=== PATIENT | female | born 1975 | race African-American/Black ===

== ENCOUNTER 2016-09-24 09:24 | Emergency (ER) | payer MEDICARE, MEDICAID ==
[~2016-09-24] VITALS: Ht 149.9 cm; Wt 103.2 kg
[~2016-09-24 09:24] MED LIST: ALBUTEROL SULFAT3 M3 IH; ALBUTEROL0.83 MG/ML IH; ASPIRIN 81M81 MG/TA2 PO; ASPIRIN E.C. 8181 MG PO; CELEXA10 MG PO; CLEOCIN HC150 MG/CAP PO; COLACE 100100 MG/CAP PO; COUMADIN 6MG6 MG/TAB; COUMADIN 6MG6 MG/TAB PO; COUMADIN4 MG; COUMADIN4 MG PO; DILANTIN 100MG100 MG PO; DILANTIN O100 MG/4 M PO; FLONASE NASAL S16 GM NS; FLONASEALLERGY NS; IPRATROPIUM BROM3 M1 IH; KEPPRA1000 MG; KEPPRA1000 MG PO; LASIX 40MG TABL40 MG PO; LEVAQUIN 5500 MG/TA1 PO; LEVAQUIN 750MG750 M1 PO; LEVOXYL0.1 MG PO; LIPITOR20 MG PO; LOVENOX 4040 MG/0.4 SQ; MOTRIN 400400 MG/TAB PO; MUCINEX D1 TER PO; NORCO 325 MG-51 TAB PO; NORCO 325 MG-7.1 TAB PO; OMNICEF 300MG300 MG PO; RT ALBUTER2.5 MG/0.5 IH; SALINE 45 ML45 ML NS; SALINE NASAL SP45 ML NS; SEASONALE 30 MC1 TAB PO; SINGULAIR 110 MG/TAB PO; STOOL SOFTENER100 M2 PO; SYNTHROID0.075 MG/T PO; SYNTHROID0.1 MG/TAB PO; SYNTHROID0.175 MG PO; TYLENOL 325MG325 MG PO; ZITHROMAX 250M250 MG PO; ZITHROMAX Z PA250 MG PO; ZOFRAN ODT4 MG PO; ZONEGRAN 100MG100 MG PO; ZYRTEC 10MG10 MG PO
[2016-09-24 09:26] VITALS: TEMP 98.2
[2016-09-24 11:05] LABS: BASO # 0.1 (0.0-0.2); EOS # 0.1 (0.0-0.7); GRAN # 4.9 (1.4-6.5); HEMOGLOBIN 12.2 g/dl (12.5-16.0); LYMPH # 1.3 (1.2-3.4); LYMPH % 18.9 % (20.0-51.0); MEAN CELL VOLUME 91 fl (80.0-100.0); MEAN CORPUSCULAR HEMOGLOBIN 29 pg (27.0-31.0); MEAN CORPUSCULAR HGB CONC 32 g/dl (33.0-37.0); MEAN PLATELET VOLUME 10.2 fl (7.4-10.4); MONO # 0.6 (0.1-0.6); MONO % 8.8 % (1.7-9.3); PLATELET COUNT 316 K/mm3 (130-400); REDCELL DISTRIBUTION WIDTH-CV 16.3 % (11.5-14.5); WHITE BLOOD COUNT 7.1 K/mm3 (4.8-10.8)
[2016-09-24 11:07] LABS: INR 2.6 (0.8-3.0); PROTHROMBIN TIME 29.8 SECONDS (9.7-12.8)
[2016-09-24 11:08] LABS: CREATININE, serum 0.85 mg/dL (0.52-1.25); POTASSIUM 4.3 mmol/L (3.4-5.0)
[2016-09-24 11:10] LABS: PARTIAL THROMBOPLASTIN TIME 38.6 SECONDS (26.0-37.0)
[2016-09-24] MEDS ORDERED: SYNTHROID0.112 MG/T PO (11:21)
[2016-09-24] MEDS ORDERED: KEPPRA1000 MG PO (11:23)
[2016-09-24] MEDS ORDERED: COLACE 100100 MG/CAP PO (11:23)
[2016-09-24] MEDS ORDERED: SALINE MIST 4545 ML NS (11:24)
[2016-09-24] MEDS ORDERED: COUMADIN 6MG6 MG/TAB PO (11:25)
[2016-09-24] MEDS ORDERED: TYLENOL W/COD1 UDTAB PO (14:33)
[2016-09-24 14:42] VITALS: BP 120/93
[2016-09-24 15:25] VITALS: PULSE 96
== END 2016-09-24 15:26 | disposition home or self-care (01) ==
LOC: COL.ER 09:24
PROVIDERS: Emergency Medicine
DX: I77.89 Other specified disorders of arteries and arterioles (principal); Z86.718 Personal history of other venous thrombosis and embolism; Z79.01 Long term (current) use of anticoagulants; Z86.73 Personal history of transient ischemic attack (TIA), and cerebral infarction without residual deficits
CPT/HCPCS: J2765; J3010; J7040; Q9967

== ENCOUNTER 2016-10-06 21:45 | Emergency (ER) | payer MEDICARE, MEDICAID ==
[~2016-10-06] VITALS: Ht 149.9 cm; Wt 103.2 kg
[~2016-10-06 21:45] MED LIST changes: +SALINE MIST 4545 ML NS; +SYNTHROID0.112 MG/T PO; +TYLENOL W/COD1 UDTAB PO
[2016-10-06 21:47] VITALS: TEMP 98.4
[2016-10-06 22:46] LABS: HEMATOCRIT 38.2 % (37.0-47.0); HEMOGLOBIN 12.4 g/dl (12.5-16.0); MEAN CELL VOLUME 89 fl (80.0-100.0); MEAN CORPUSCULAR HEMOGLOBIN 29 pg (27.0-31.0); MEAN CORPUSCULAR HGB CONC 33 g/dl (33.0-37.0); MEAN PLATELET VOLUME 9.8 fl (7.4-10.4); PLATELET COUNT 301 K/mm3 (130-400); REDCELL DISTRIBUTION WIDTH-CV 16.3 % (11.5-14.5); WHITE BLOOD COUNT 7.7 K/mm3 (4.8-10.8)
[2016-10-06 22:52] LABS: ADD PATHOLOGY DIFF REVIEW NO
[2016-10-06 22:52] LABS: PROTHROMBIN TIME 40.9 SECONDS (9.7-12.8)
[2016-10-06 22:54] LABS: INR 3.5 (0.8-3.0)
[2016-10-06 22:59] LABS: CALCIUM 8.8 mg/dL (8.4-10.2); CREATININE, serum 0.84 mg/dL (0.52-1.25); POTASSIUM 3.6 mmol/L (3.4-5.0)
[2016-10-06 23:08] LABS: BAND 33 % (0-10); EOSINOPHIL 1 % (0-4); NEUTROPHILS 31 % (42.0-75.2); PLATELET ESTIMATE NORMAL (NORMAL); TOTAL CELLS COUNTED 100
[2016-10-06 23:21] VITALS: BP 131/68; PULSE 64
== END 2016-10-06 23:21 | disposition home or self-care (01) ==
LOC: COL.ER 21:45
PROVIDERS: Emergency Medicine
DX: I73.9 Peripheral vascular disease, unspecified (principal); M79.671 Pain in right foot; Q90.9 Down syndrome, unspecified; Z86.718 Personal history of other venous thrombosis and embolism; Z79.01 Long term (current) use of anticoagulants

== ENCOUNTER → 2016-10-23 | Outpatient (CLI) | payer MEDICARE, MEDICAID | LOC: COL.RAD 13:28 | DX: M25.571 Pain in right ankle and joints of right foot (principal); M85.871 Other specified disorders of bone density and structure, right ankle and foot; Z98.890 Other specified postprocedural states; Z47.89 Encounter for other orthopedic aftercare ==

== ENCOUNTER 2016-11-18 09:53 | Day surgery (SDC) | payer MEDICARE, MEDICAID ==
[~2016-11-18] VITALS: Ht 162.6 cm; Wt 103.2 kg
[2016-11-18] MEDS ORDERED: LOVENOX 4040 MG/0.4 SQ (12:01)
[2016-11-18 12:52] VITALS: BP 107/56; PULSE 73; TEMP 98.1
== END 2016-11-18 12:35 | disposition home or self-care (01) ==
LOC: SDCO 09:53
DX: S82.401A Unspecified fracture of shaft of right fibula, initial encounter for closed fracture (principal); Z53.09 Procedure and treatment not carried out because of other contraindication; G47.33 Obstructive sleep apnea (adult) (pediatric); R56.9 Unspecified convulsions; E66.01 Morbid (severe) obesity due to excess calories; Z68.41 Body mass index [BMI] 40.0-44.9, adult; Q90.9 Down syndrome, unspecified; Q24.9 Congenital malformation of heart, unspecified; E03.9 Hypothyroidism, unspecified; G47.419 Narcolepsy without cataplexy; Z86.73 Personal history of transient ischemic attack (TIA), and cerebral infarction without residual deficits; Z79.899 Other long term (current) drug therapy; Z79.01 Long term (current) use of anticoagulants; Z86.718 Personal history of other venous thrombosis and embolism
CPT/HCPCS: J7120

== ENCOUNTER 2016-11-24 10:35 | Day surgery (SDC) | payer MEDICARE, MEDICAID ==
[2016-11-24] VITALS (7 sets, daily range): BP systolic 104–147; BP diastolic 58–84; PULSE 69–96; TEMP 98.3–98.4
[~2016-11-24] VITALS: Ht 149.9 cm; Wt 103.2 kg
[2016-11-24] MEDS ORDERED: MUCINEX D1 TER PO (11:34)
[2016-11-24] MEDS ORDERED: TYLENOL 325MG325 MG PO (11:34)
[2016-11-24] MEDS ORDERED: ZYRTEC 10MG10 MG PO (11:35)
[2016-11-24 12:30] LABS: INR 1.1 (0.8-3.0); PROTHROMBIN TIME 11.9 SECONDS (9.7-12.8)
== END 2016-11-24 16:45 | disposition home or self-care (01) ==
LOC: SDCO 10:35
PROVIDERS: Orthopaedic Surgery
DX: S82.301K Unspecified fracture of lower end of right tibia, subsequent encounter for closed fracture with nonunion (principal); M25.371 Other instability, right ankle; Z79.01 Long term (current) use of anticoagulants; I50.9 Heart failure, unspecified; I51.9 Heart disease, unspecified; Q90.9 Down syndrome, unspecified; N90.89 Other specified noninflammatory disorders of vulva and perineum; F79 Unspecified intellectual disabilities; F32.9 Major depressive disorder, single episode, unspecified; I69.354 Hemiplegia and hemiparesis following cerebral infarction affecting left non-dominant side; X58.XXXS Exposure to other specified factors, sequela
CPT/HCPCS: C1713; J0690; J1100; J1170; J1885; J2250; J2405; J2704; J2765; J7120

== ENCOUNTER 2017-02-24 10:00 | Outpatient (RCR) | payer MEDICARE, MEDICAID | END 2017-04-22 | LOC: MKS.ESL.PT | DX: Z47.89 Encounter for other orthopedic aftercare (principal); Z98.890 Other specified postprocedural states | CPT/HCPCS: G8978-GP; G8979-GP ==

== ENCOUNTER 2017-05-22 18:21 | Emergency (ER) | payer MEDICARE, MEDICAID ==
[~2017-05-22] VITALS: Ht 149.9 cm; Wt 103.2 kg
[2017-05-22 18:24] VITALS: TEMP 97.9
[2017-05-22 19:08] LABS: BASO # 0.1 (0.0-0.2); BASO % 0.9 % (0.0-2.0); EOS # 0.1 (0.0-0.7); EOS % 1.4 % (0-4.0); GRAN % 61.5 % (42.2-75.2); HEMATOCRIT 39.9 % (37.0-47.0); HEMOGLOBIN 12.9 g/dl (12.5-16.0); LYMPH # 1.7 (1.2-3.4); LYMPH % 26.5 % (20.0-51.0); MEAN CELL VOLUME 93 fl (80.0-100.0); MEAN CORPUSCULAR HEMOGLOBIN 30 pg (27.0-31.0); MEAN CORPUSCULAR HGB CONC 32 g/dl (33.0-37.0); MEAN PLATELET VOLUME 10.1 fl (7.4-10.4); MONO # 0.6 (0.1-0.6); MONO % 9.1 % (1.7-9.3); PLATELET COUNT 290 K/mm3 (130-400); RED BLOOD COUNT 4.28 M/mm3 (4.10-5.30); WHITE BLOOD COUNT 6.6 K/mm3 (4.8-10.8)
[2017-05-22 19:11] LABS: COLLECTION METHOD CATHETER
[2017-05-22 19:15] LABS: INR 2.1 (0.8-3.0); PROTHROMBIN TIME 24.2 SECONDS (9.7-12.8)
[2017-05-22 19:16] LABS: MUCOUS Present /lpf; PH 5 (5-8); SQUAMOUS EPITHELIAL 0-2 /hpf; URINE APPEARANCE Clear; URINE BACTERIA None Seen /hpf; URINE BILIRUBIN Negative (NEGATIVE); URINE BLOOD Negative (NEGATIVE); URINE COLOR Yellow; URINE GLUCOSE Negative (NEGATIVE); URINE KETONE Negative (NEGATIVE); URINE LEUKOCYTE ESTERASE Negative (NEGATIVE); URINE PROTEIN(semi-quant) Negative (NEGATIVE); URINE RBC 0-2 /hpf; URINE UROBILINOGEN Negative (NEGATIVE); URINE WBC 0-2 /hpf
[2017-05-22 19:17] LABS: PARTIAL THROMBOPLASTIN TIME 36.7 SECONDS (26.0-37.0)
[2017-05-22 19:19] LABS: ALANINE AMINOTRANSFERASE 39 U/L (9-52); ALKALINE PHOSPHATASE 98 U/L (50-136); ANION GAP 6 mmol/L (7-16); BILIRUBIN,TOTAL 0.4 mg/dL (0.0-1.0); BLOOD UREA NITROGEN 15 mg/dL (7-17); CARBON DIOXIDE 32 mmol/L (22-30); CHLORIDE 102 mmol/L (98-107); GLUCOSE 102 mg/dL (74-106); POTASSIUM 4.3 mmol/L (3.4-5.0); SODIUM 141 mmol/L (137-145); TOTAL PROTEIN 7.6 gm/dL (6.4-8.2)
[2017-05-22 19:30] LABS: B-TYPE NATRIURETIC PEPTIDE 96 pg/mL (0-125); TROPONIN-I < 0.012 ng/mL (0.000-0.034)
[2017-05-22 20:11] LABS: ARTERIAL BLD GAS O2 SATURATION 89.5 % (92-100); ARTERIAL BLD GAS TCO2 CT 27.8; ARTERIAL BLOOD GAS HCO3 26.4 meq/L (22-26); ARTERIAL BLOOD GAS PHT 7.39 C (7.35-7.45); ARTERIAL BLOOD GAS PO2 60.7 mmHg (80-100); ARTERIAL BLOOD GAS PO2T 60.7 (80-100); ARTERIAL BLOOD GAS pH 7.39 (7.35-7.45); OXYHEMOGLOBIN 88.8 %
[2017-05-22 20:12] LABS: ALLEN TEST YES; ALLENS TEST RESULT PASS; ATS? YES
[2017-05-22 21:37] VITALS: BP 128/74; PULSE 74
== END 2017-05-22 21:34 | disposition home or self-care (01) ==
LOC: COL.ER 18:21
PROVIDERS: Emergency Medicine
DX: R09.02 Hypoxemia (principal); I50.9 Heart failure, unspecified; E03.9 Hypothyroidism, unspecified; Q24.9 Congenital malformation of heart, unspecified; Q90.9 Down syndrome, unspecified; Z86.73 Personal history of transient ischemic attack (TIA), and cerebral infarction without residual deficits; Z87.39 Personal history of other diseases of the musculoskeletal system and connective tissue; Z79.82 Long term (current) use of aspirin; Z79.01 Long term (current) use of anticoagulants

== ENCOUNTER → 2019-05-04 | Outpatient (CLI) | payer MEDICARE, MEDICAID | LOC: COL.PUL 12:20 | DX: G47.33 Obstructive sleep apnea (adult) (pediatric) (principal); Z99.89 Dependence on other enabling machines and devices ==

== ENCOUNTER 2019-09-15 12:35 | Outpatient (RCR) | payer MEDICARE, MEDICAID | END 2019-12-14 | disposition home or self-care (01) | LOC: MKS.ESL.PT | DX: M21.371 Foot drop, right foot (principal); Z74.09 Other reduced mobility ==